=== PATIENT | female | born 1965 | race Caucasian/White ===

== ENCOUNTER → 2024-10-05 11:12 | Outpatient (CLI) | payer OTHER, SELFPAY ==
[2024-10-05 12:29] LABS: Add Manual Diff / Slide Review NO; Hematocrit 40.9 % (36-46); Hemoglobin 14.1 g/dL (12.0-16.0); Lymphocytes Absolute Auto 2400 /uL (1100-4500); Mean Corpuscular HGB Conc 34.4 % (30-36); Mean Corpuscular Hemoglobin 30.7 PG (26-34); Mean Corpuscular Volume 89.5 fL (80-100); Platelet Count 209 X10^3/uL (150-400)
[2024-10-05 13:12] LABS: Cholesterol 276 mg/dL (140-199); HDL Cholesterol 47 mg/dL (40-60); Triglycerides 288 mg/dL (35-150)
[2024-10-05 13:40] LABS: TSH w/ Reflex to FT4 11.60 uIU/mL (0.47-4.68)
[2024-10-05 14:00] LABS: Vitamin B12 328 pg/mL (239-931)
[2024-10-05 15:43] LABS: Vitamin D 25 Hydroxy (D3) 46.1 ng/mL (30.0-100.0)
[2024-10-05 17:09] LABS: Free T4, Direct Thyroxine 1.42 ng/dL (0.78-2.19)
== END ==
PROVIDERS: Family Medicine; Student in an Organized Health Care Education/Training Program; PCP Family Medicine; Referring Provider Family Medicine; Visit Provider Family Medicine
DX: F32.4 Major depressive disorder, single episode, in partial remission (principal); E89.0 Postprocedural hypothyroidism; E78.00 Pure hypercholesterolemia, unspecified; Z90.89 Acquired absence of other organs; Z98.890 Other specified postprocedural states
CPT/HCPCS: 36415; 80061; 82306; 82607; 84439; 84443; 85025